=== PATIENT | female | born 1980 | race Caucasian/White ===

== ENCOUNTER 2022-12-17 15:48 | Emergency (ER) | payer OTHER ==
[2022-12-17] MEDS ORDERED: Rabies Vaccine Human 2.5 UNITS VIAL IM ONE (17:30)
[2022-12-17] MEDS ORDERED: Boostrix 0.5 ML (Tdap) VIAL (>/=7 yrs of age) ONE (17:41)
== END 2022-12-17 18:01 | disposition home or self-care (01) ==
LOC: CSHERS 15:48
DX: S61.432A Puncture wound without foreign body of left hand, initial encounter (principal); S61.532A Puncture wound without foreign body of left wrist, initial encounter; S51.031A Puncture wound without foreign body of right elbow, initial encounter; S60.512A Abrasion of left hand, initial encounter; S60.812A Abrasion of left wrist, initial encounter; S50.311A Abrasion of right elbow, initial encounter; Z23 Encounter for immunization; W55.01XA Bitten by cat, initial encounter
CPT/HCPCS: 90471; 90472; 90675; 90715